=== PATIENT | female | born 1975 | race Caucasian/White ===

== ENCOUNTER 2018-03-15 03:47 | Emergency (ER) | payer OTHER ==
[~2018-03-15] VITALS: Ht 165.1 cm; Wt 121.4 kg
[2018-03-15] MEDS ORDERED: ONDANSETRON 2MG/ML, 2ML ONE (04:06)
[2018-03-15] MEDS ORDERED: MORPHINE SULFATE 4 MG/ML, 1ML ONE ×2 (04:06→04:44)
[2018-03-15] MEDS: MORPHINE SULFATE 4 MG/ML, 1ML IVPush PRN ×2 (04:14→04:47)
[2018-03-15] MEDS ORDERED: ONDANSETRON 2MG/ML, 2ML IVPush ONE (04:30)
[2018-03-15 04:37] LABS: CULTURE INDICATED? YES; MICROSCOPIC INDICATED
[2018-03-15 04:38] LABS: BASOPHILS # (AUTO) 0.04 x10^3/uL (0-0.1); BASOPHILS % (AUTO) 1 % (0-1); EOSINOPHILS # (AUTO) 0.31 x10^3/uL (0-0.4); EOSINOPHILS % (AUTO) 4 % (1-7); LYMPHOCYTES # (AUTO) 2.54 x10^3/uL (1-3.4); LYMPHOCYTES % (AUTO) 32 % (22-44); MD NO; MEAN CORPUSCULAR HEMOGLOBIN 30.3 pg (27.0-34.8); MEAN CORPUSCULAR HGB CONC 34.3 g/dL (32.4-35.8); MEAN CORPUSCULAR VOLUME 88.3 fL (80-100); MEAN PLATELET VOLUME 9.3 fL (7.4-10.4); MONOCYTES # (AUTO) 0.56 x10^3/uL (0.2-0.8); MONOCYTES % (AUTO) 7 % (2-9); NEUTROPHILS # (AUTO) 4.62 x10^3/uL (1.8-6.8); NEUTROPHILS % (AUTO) 57 % (42-75); PLATELET COUNT 302 x10^3/uL (130-400); RED BLOOD COUNT 4.71 x10^6/uL (3.82-5.3); RED CELL DISTRIBUTION WIDTH 14.2 % (9.6-15.2)
[2018-03-15 04:53] LABS: ALANINE AMINOTRANSFERASE 52 U/L (12-78); ALBUMIN 3.7 g/dL (3.4-5.0); ANION GAP 7 mmol/L (5-15); CALCIUM 9.7 mg/dL (8.5-10.1); CHLORIDE 107 mmol/L (98-107); CREATININE 0.77 mg/dL (0.55-1.02)
[2018-03-15 04:58] LABS: ALKALINE PHOSPHATASE 82 U/L (45-117); BILIRUBIN,TOTAL 0.3 mg/dL (0.2-1.0); TOTAL PROTEIN 7.8 g/dL (6.4-8.2); TROPONIN I < 0.015 ng/mL (0.000-0.045)
[2018-03-15 05:36] VITALS: BP 156/95
== END 2018-03-15 06:09 | disposition home or self-care (01) ==
LOC: ED 06:03
DX: N13.2 Hydronephrosis with renal and ureteral calculous obstruction (principal)
CPT/HCPCS: 36415; 74176; 80053; 81001; 83690; 84484; 84703; 85025; 86677; 87086; 96374; 96375; 96376; 99285; J2405

== ENCOUNTER 2018-11-15 05:42 | Emergency (ER) | payer OTHER ==
[~2018-11-15] VITALS: Ht 167.6 cm; Wt 121.1 kg
--- NOTE | 2018-11-15 06:02 | NUR ---
PT PRESENTS TO ED W/ INTERMITTENT S/Sx1 WEEK. STATES LAW PAIN L SIDE W/ HX OF SAME. TINGLING IN PINKY AND PARTS OF L HAND AND PINKY TOE AND PARTS OF L FOOT. DENIES ANY VISION CHANGES. STATES BARCENAS W/ HX OF SAME. NEURO OTHERWISE APPEARS INTACT. STATES BP ELEVATED RECENTLY W/ NO HX OF HTN, EXCLUDING PREECLAMPSIA. STATES INTERMITTENT SOB, DENIES CP. INTERMITTENTLY DIZZY. NO GLF OR SYNCOPE NOTED. ALL MONITORING APPLIED. BP ELEVATED. PA AT BEDSIDE AND AWARE. VS OTHERWISE STABLE.
--- NOTE | 2018-11-15 06:10 | NUR ---
PT C/O SWELLING TO LEGS RECENTLY WELL. 1+ NON-PITTING EDEMA NOTED.
--- NOTE | 2018-11-15 06:23 | NUR ---
PT TO CT.
--- NOTE | 2018-11-15 06:48 | NUR ---
PT BEDSIDE REPORT TO LEONOR RUANO.
[2018-11-15 07:10] LABS: BASOPHILS # (AUTO) 0.06 x10^3/uL (0-0.1); BASOPHILS % (AUTO) 1 % (0-1); EOSINOPHILS % (AUTO) 6 % (1-7); LYMPHOCYTES # (AUTO) 1.58 x10^3/uL (1-3.4); LYMPHOCYTES % (AUTO) 19 % (22-44); MD NO; MEAN CORPUSCULAR HEMOGLOBIN 29.8 pg (27.0-34.8); MEAN CORPUSCULAR HGB CONC 33.4 g/dL (32.4-35.8); MEAN CORPUSCULAR VOLUME 89.1 fL (80-100); MEAN PLATELET VOLUME 9.2 fL (7.4-10.4); MONOCYTES # (AUTO) 0.47 x10^3/uL (0.2-0.8); MONOCYTES % (AUTO) 6 % (2-9); NEUTROPHILS # (AUTO) 5.52 x10^3/uL (1.8-6.8); NEUTROPHILS % (AUTO) 68 % (42-75); PLATELET COUNT 286 x10^3/uL (130-400); RED BLOOD COUNT 4.74 x10^6/uL (3.82-5.3); RED CELL DISTRIBUTION WIDTH 13.1 % (9.6-15.2)
[2018-11-15 07:21] LABS: ALANINE AMINOTRANSFERASE 48 U/L (12-78); ALBUMIN 3.6 g/dL (3.4-5.0); ANION GAP 8 mmol/L (5-15); CALCIUM 9.2 mg/dL (8.5-10.1); CHLORIDE 106 mmol/L (98-107); CREATININE 0.64 mg/dL (0.55-1.02)
[2018-11-15 07:25] LABS: ALKALINE PHOSPHATASE 69 U/L (45-117); BILIRUBIN,TOTAL 0.3 mg/dL (0.2-1.0); TOTAL PROTEIN 7.5 g/dL (6.4-8.2)
[2018-11-15 08:31] VITALS: BP 128/86
--- NOTE | 2018-11-15 08:32 | NUR ---
Patient/Caregiver given discharge instructions and they have confirmed that they understand the instructions. Patient ambulatory with steady gait.
== END 2018-11-15 08:33 | disposition home or self-care (01) ==
LOC: ED 07:01
DX: I10 Essential (primary) hypertension (principal); H81.12 Benign paroxysmal vertigo, left ear; R60.0 Localized edema; R20.2 Paresthesia of skin
CPT/HCPCS: 36415; 70450; 71045; 80053; 83880; 84703; 85025; 93005; 99284

== ENCOUNTER 2019-01-21 20:02 | Emergency (ER) | payer OTHER ==
[~2019-01-21] VITALS: Ht 165.1 cm; Wt 116.9 kg
[2019-01-21 20:17] VITALS: BP 145/88
== END 2019-01-21 21:58 | disposition home or self-care (01) ==
LOC: ED 20:52
DX: M79.662 Pain in left lower leg (principal)
CPT/HCPCS: 99284

== ENCOUNTER 2019-03-17 20:52 | Emergency (ER) | payer OTHER ==
[~2019-03-17] VITALS: Ht 167.6 cm; Wt 119.2 kg
[2019-03-17 20:54] VITALS: BP 150/99
--- NOTE | 2019-03-17 21:15 | NUR ---
Patient in room with family; ao; abc assessment complete; awaiting orders.
[2019-03-17] MEDS ORDERED: ONDANSETRON ODT 8 MG ONE (21:46)
[2019-03-17] MEDS ORDERED: HYDROmorphone 1 MG/ML, 1ML VIAL ONE (21:46)
[2019-03-17] MEDS ORDERED: HYDROmorphone 1 MG/ML, 1ML INJ IM PRN (22:00)
[2019-03-17] MEDS ORDERED: ONDANSETRON ODT 4 MG PO ONE ×2 (22:00→22:30)
[2019-03-17] MEDS ORDERED: HYDROmorphone 1 MG/ML, 1ML INJ IM ONE (22:00)
[2019-03-17] MEDS ORDERED: OXYcodone/APAP 10/325MG TABLET ONE (22:19)
[2019-03-17] MEDS ORDERED: ONDANSETRON ODT 4 MG ONE (22:19)
[2019-03-17] MEDS ORDERED: OXYcodone/APAP 10/325MG TABLET PO ONE (22:30)
[2019-03-18] MEDS ORDERED: LISINOPRIL (11:59)
[2019-03-18] MEDS ORDERED: PERCOCET (12:01)
[2019-03-18] MEDS ORDERED: BUPROPION (12:01)
[2019-03-18] MEDS ORDERED: HYDROCHLOROTHIAZIDE (12:01)
== END 2019-03-17 22:46 | disposition home or self-care (01) ==
LOC: ED 22:21
DX: S52.592A Other fractures of lower end of left radius, initial encounter for closed fracture (principal); I10 Essential (primary) hypertension; W01.0XXA Fall on same level from slipping, tripping and stumbling without subsequent striking against object, initial encounter; Y93.89 Activity, other specified; Y92.69 Other specified industrial and construction area as the place of occurrence of the external cause; Y99.8 Other external cause status
CPT/HCPCS: 29125; 73110; 96372; 99283; J1170; Q0162

== ENCOUNTER 2019-03-18 10:59 | Day surgery (SDC) | payer OTHER ==
[~2019-03-18] VITALS: Ht 167.6 cm; Wt 118.0 kg
[2019-03-18 11:48] VITALS: BP 128/81
== END 2019-03-18 15:40 | disposition home or self-care (01) ==
LOC: OUT 10:59
PROVIDERS: ATTEND Orthopaedic Surgery
DX: S52.572A Other intraarticular fracture of lower end of left radius, initial encounter for closed fracture (principal); I10 Essential (primary) hypertension; W19.XXXA Unspecified fall, initial encounter; Y93.89 Activity, other specified; Y92.89 Other specified places as the place of occurrence of the external cause; Y99.8 Other external cause status
CPT/HCPCS: 25609; 64415; 73100; 81025; C1713; J0330; J0690; J1100; J2250; J2405; J2704; J3010; J7120; 76000; J0171

== ENCOUNTER 2021-04-30 19:18 | Emergency (ER) | payer OTHER ==
[~2021-04-30] VITALS: Ht 167.6 cm; Wt 108.7 kg
[~2021-04-30 19:18] MED LIST: BUPROPION; HYDROCHLOROTHIAZIDE; LISINOPRIL; PERCOCET
--- NOTE | 2021-04-30 19:48 | NUR ---
EKG DONE IN TRIAGE.
[2021-04-30 21:36] VITALS: BP 152/89
--- NOTE | 2021-04-30 21:38 | NUR ---
pt presents to ed with c/o SOB, cough, generalized weakness since last night. pt took at home covid test and came back positive. alex Fuller at bedside for eval
--- NOTE | 2021-04-30 22:15 | NUR ---
Patient/Caregiver given discharge instructions and they have confirmed that they understand the instructions. Patient ambulatory with steady gait. NAD, all questions answered appropriately, denies additional needs at this time. No personal belongings left in room after discharge.
== END 2021-04-30 22:26 | disposition home or self-care (01) ==
LOC: ED 22:00
DX: U07.1 COVID-19 (principal); B34.9 Viral infection, unspecified; I10 Essential (primary) hypertension
CPT/HCPCS: 71045; 93005; 99285; U0003; U0005